=== PATIENT | female | born 1985 ===

== ENCOUNTER 2018-11-23 20:47 | Emergency (ER) | payer SELFPAY ==
[~2018-11-23] VITALS: Ht 172.7 cm; Wt 67.7 kg
[2018-11-23 21:01] VITALS: BP 128/78; PULSE 99; RESP 18; Ht 172.7 cm; Wt 67.7 kg
== END 2018-11-24 02:24 | disposition left against medical advice (07) ==
LOC: FTE 20:47
DX: Z53.21 Procedure and treatment not carried out due to patient leaving prior to being seen by health care provider (principal)